=== PATIENT | female | born 1980 | race Caucasian/White ===

== ENCOUNTER 2023-01-04 19:43 | Outpatient (REF) | payer MEDICAID, SELFPAY ==
[2023-01-10 17:11] LABS: Age Gdln ACOG Testing Note (.); HPV Aptima Negative (Negative); IGP, Aptima HPV, rfx 16/18,45 Note (.)
== END 2023-01-04 19:44 | disposition home or self-care (01) ==
LOC: LAB 19:43
PROVIDERS: Visit Provider Obstetrics & Gynecology
DX: Z12.4 Encounter for screening for malignant neoplasm of cervix (principal)
CPT/HCPCS: 87624; G0145

== ENCOUNTER 2023-01-19 11:05 | Outpatient (OUT) | payer MEDICAID, SELFPAY ==
--- NOTE | 2023-01-19 11:56 | PM.PRESUREVA ---
History of Present Illness History of Present Illness Chief complaint: cervical polyps, pelvic pain, dysperunia Narrative: Patient presents for preadmission testing. Please see HPI from Dr. Feliciano dated 01/04/2023. Review of Systems ROS Narrative Please see ROS from Dr. Feliciano dated 01/04/2023. [facility] Medical History (Updated 01/19/23 @ 11:30 by Kirsten Rodriguez NP) Anxiety ?F41.9 - Anxiety disorder, unspecified (ICD-10) Cervical polyp ?N84.1 - Polyp of cervix uteri (ICD-10) COVID-19 ?U07.1 - COVID-19 (ICD-10) Dyspareunia GERD (gastroesophageal reflux disease) ?K21.9 - Gastro-esophageal reflux disease without esophagitis (ICD-10) Migraine ?G43.909 - Migraine, unspecified, not intractable, without status migrainosus (ICD-10) Pelvic pain ?R10.2 - Pelvic and perineal pain (ICD-10) Family History (Updated 01/19/23 @ 11:30 by Kirsten Rodriguez NP) Other Congestive heart failure Family history of breast cancer Family history of colon cancer Family history of diabetes mellitus Family history of gastric cancer Family history of hypertension Social History (Updated 01/19/23 @ 11:26 by Kirsten Rodriguez NP) Within the past year, how often did you have a drink containing alcohol: monthly or less Smoking status: Current some day smoker What tobacco products do you use: cigarettes Pack-years instructions: Please document either packs per day or cigarettes per day in order for pack years to calculate correctly. If using both packs per day and cigarettes per day, please make sure that they denote the same thing. If they differ, pack-years will calculate based on packs per day. 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 Highest level of school completed/degree received: high school graduate Meds Home Medications and Allergies Home Medications Medication Instructions Recorded Confirmed Type venlafaxine 37.5 mg 37.5 mg PO QDAY 01/19/23 01/19/23 History capsule,extended release 24 hr Allergies Allergy/AdvReac Type Severity Reaction Status Date / Time latex Allergy swelling Verified 01/19/23 11:24 Exam Narrative Exam Narrative: Constitutional: Awake, alert, comfortable, well-appearing, nontoxic, interactive, vital signs as charted Head: Normocephalic, atraumatic Neck: Supple, normal appearance, normal range of motion, no meningeal signs, no lymphadenopathy Respiratory: No respiratory distress, breath sounds clear Cardiovascular: Regular rate and rhythm, strong and regular heart tones Abdomen: Nontender, normal bowel sounds, soft, no CVA tenderness Musculoskeletal: Normal gait, no swelling or edema Skin: No rashes or induration, no lesions, only visible skin inspected Neuro: No neurological deficits, normal sensation Psychiatric: Oriented ?3, normal affect Assessment and Plan Assessment and Plan (1) Cervical polyp: (2) Pelvic pain: (3) Dyspareunia: Plan Diagnostic laparoscopy, possible CECILIA, possible FOE, possible bilateral salpingo-oophorectomy, cervical/vaginal polypectomy scheduled with Dr. Feliciano 01/26/2023.
== END 2023-01-19 11:06 | disposition home or self-care (01) ==
PROVIDERS: Visit Provider Obstetrics & Gynecology
DX: Z01.818 Encounter for other preprocedural examination (principal); R10.2 Pelvic and perineal pain; N94.10 Unspecified dyspareunia; N84.1 Polyp of cervix uteri
CPT/HCPCS: G0463

== ENCOUNTER 2023-01-26 06:33 | Day surgery (SDC) | payer MEDICAID, SELFPAY ==
[2023-01-19 11:47] VITALS: BP 142/85; PULSE 79; RESP 18; TEMP 36.5; O2SAT 98; BMI 34.9
[2023-01-26] VITALS (12 sets, daily range): BP systolic 119–141; BP diastolic 44–87; PULSE 64–86; RESP 13–22; TEMP 35.8–36.5; O2SAT 93–98
[2023-01-26 06:46] LABS: Basophils Percent Auto 0.1 % (0.2-2.0); Eosinophils Absolute Auto 0.2 10^3/uL (0.0-0.7); Eosinophils Percent Auto 2.1 % (0.9-7.0); Hematocrit 41.9 % (36.0-48.0); Hemoglobin 13.7 g/dL (12.0-16.0); Immature Granulocytes Abs Auto 0.02 10^3/uL (0.00-0.03); Immature Granulocytes Pct Auto 0.2 % (0.0-0.5); Lymphocytes Absolute Auto 3.3 10^3/uL (1.2-3.8); Lymphocytes Percent Auto 38.8 % (20.5-60.0); Mean Corpuscular HGB Conc 32.7 g/dL (29.9-35.2); Mean Corpuscular Volume 91.7 fL (81.0-99.0); Mean Platelet Volume 11.4 fL (9.5-13.5); Monocytes Absolute Auto 0.5 10^3/uL (0.3-0.8); Monocytes Percent Auto 5.5 % (1.7-12.0); Neutrophils Absolute Auto 4.5 10^3/uL (1.4-6.5); Neutrophils Percent Auto 53.3 % (43.0-75.0); Platelet Count 233 10^3/uL (150-450); Red Blood Count 4.57 10^6/uL (4.20-5.40); Red Cell Distribution Width 12.7 % (11.0-15.0); White Blood Count 8.4 10^3/uL (4.0-11.0)
[2023-01-26 07:06] LABS: HCG Quantitative <1 mIU/mL
[2023-01-26] MEDS: LACTATED RINGER'S SOLUTION 1,000 ML 50 ML IV (07:08)
--- NOTE | 2023-01-26 08:41 | P.ON_ITS ---
Brief Operative Note Date of procedure: 01/26/23 Pre-op diagnosis: pelvic pain, vaginal polyp Post-op diagnosis: other (lt dermoid cyst, rt simple cyst, pelvic vascualar congestion, endometriosis anterior abdominal wall) Procedure: NAME OF PROCEDURE: [diagnostic laparoscopy with lt oopherectomy, removal of vaginal polyp ] lt dermoid cyst, vaginal polyp, anterior abdominal wall endometriosis, pelvic vascular congestion PROCEDURE: weighted speculum placed in vagina, vaginal polyp identified, suture placed around stalk polyp removed using scissors, excellent hemostasis The patient was taken back to the Operating Room where she was placed in dorsal lithotomy position after given general anesthesia. The patient was prepped and draped in normal sterile fashion. A sponge stick was placed into the patient's vagina. Attention was turned to the patient's abdomen, where a small umbilical incision was made. The fascia was tented using Matt clamps and the fascia was entered sharply. Confirmation of intraabdominal placement of the 10 mm port was confirmed under direct visualization using a laparoscope. The patient's abdomen was then insufflated using CO2 gas with approximately 4 liters. A second and third port was placed laterally, this was done under direct visualization with a 5 mm port. Survey of the patient's abdomen demonstrated normal liver and gallbladder. Survey of the patient's pelvic anatomy demonstrated simple suman earing rt ovary and lt dermoid cyst and normal tubes as well as normal appearing uterus. pelvic vascular congestion was also noted. ant abdominal wall endometrial implants could be noted, no evidence of any pelvic disease was seen, normal appearing pelvic cavity. ligasure was used to remove the left ovary. All instruments were removed from the patient's abdomen. The patient's abdomen was deinsufflated of CO2 gas. The patient tolerated the procedure well. Sponge stick was removed from the patient's vagina. The patient's infraumbilical fascia was closed using #0 Vicryl on a GI needle. The patient's skin was closed laterally and infraumbilically using 4-0 Vicryl. The patient tolerated the procedure well. Sponge, lap and needle counts were correct x 2. The patient was taken to Recovery Room in stable condition.Clips from prior surgery noted adhered to bladder, the clips were grasped and gently removed Anesthesia: MARIE Surgeon: Neto Feliciano Channel Installer: Arabella Rosen Estimated blood loss (mL): 5 Pathology: other (lt ovary) Condition: stable Disposition: PACU
[2023-01-26] MEDS: 0.9 % SODIUM CHLORIDE 1,000 ML 100 ML IV (08:52)
--- NOTE | 2023-01-26 09:33 | PC.NURSE ---
Patient states she has a little pain and states pain is tolerable. States if she needs medication for pain she will surly ask Denies need for pain at this time.
[2023-01-26] MEDS: HYDROCODONE/ACET 5-325 MG TABLET 1 TAB PO (09:38)
--- NOTE | 2023-01-26 10:09 | PC.NURSE ---
Denies urge to void; peripad dry
--- NOTE | 2023-01-26 10:50 | PC.NURSE ---
Voided clear yellow urine without difficulty; peripad dry
== END 2023-01-26 10:52 | disposition home or self-care (01) ==
LOC: SURGOUT 06:34
PROVIDERS: Visit Provider Obstetrics & Gynecology
PROC: (CPT 840; principal; 2023-01-26 07:30)
DX: R10.2 Pelvic and perineal pain (principal); N94.10 Unspecified dyspareunia; D27.1 Benign neoplasm of left ovary; N84.2 Polyp of vagina; N80.399 Endometriosis of the pelvic peritoneum, other specified sites, unspecified depth; N94.89 Other specified conditions associated with female genital organs and menstrual cycle; F41.9 Anxiety disorder, unspecified; Z86.16 Personal history of COVID-19; K21.9 Gastro-esophageal reflux disease without esophagitis; F17.210 Nicotine dependence, cigarettes, uncomplicated
CPT/HCPCS: 00840; 00940; 57135; 58661; 36415; 84702; 85025; 88112; 88305; 88307; J2704

== ENCOUNTER 2024-04-26 00:41 | Emergency (ER) | payer MEDICAID, SELFPAY ==
[2024-04-26 00:49] VITALS: BP 154/96; PULSE 110; TEMP 36.5; O2SAT 98; BMI 27.4
--- NOTE | 2024-04-26 00:49 | ED_ITS ---
HPI HPI - General Adult General Chief complaint: Nausea/Vomiting/Diarrhea Stated complaint: vomiting Time Seen by Provider: 04/26/24 00:44 History of Present Illness HPI narrative: Patient is a 43-year-old female who is presenting to the ER with chief complaint of nausea, vomiting, diarrhea. Patient had a few episodes of diarrhea tonight, 1 episode of black diarrhea. Patient did take Pepto-Bismol yesterday, not today. Patient states she has been having diffuse abdominal discomfort going on for a week. Patient states she was hoping it would go away. 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 Patient left work early secondary to nausea vomiting. Patient has not had any coffee-ground emesis, has been clear/yellow. Patient has not been able to keep liquids and today. Patient is concerned about her gallbladder. She has no history of acid reflux. Patient states that she rarely drinks alcohol. Patient is a smoker, half a pack to a pack of cigarettes a day. No anti-inflammatories significant use. Patient had a greasy breakfast yesterday, but no excessive greasy or fatty food intake. No significant recent stressor anxiety. Patient has no history of acid reflux or heartburn. No gallbladder history. She still has her appendix. No previous abdominal surgeries. No other acute complaints. Patient does not believe she is , her had a vasectomy. Patient's been having intermittent nausea, intermittent warm flashes. All systems are negative except as noted/marked. All systems reviewed and otherwise negative. Nurses note and vital signs reviewed and patient is not hypoxic. General: The patient appears mild distress, somewhat slightly writhing in the bed, squirming and intermittently moving, not able to find any comfortable position.. Patient is resting uncomfortably on cart. Patient is not toxic, lethargic, or listless Skin: Warm, dry, no pallor noted. There is no rash noted. No petechiae, purpura. Head: Normocephalic, atraumatic Eye: Normal conjunctiva, no drainage, EOMI. PERRL Ears, Nose, Mouth, and Throat: oral mucosa is moist. Nares patent. Mouth without vesicles. Cardiovascular: Regular Rate and Rhythm, no murmur, gallop, rub Respiratory: Patient is in no distress, no accessory muscle use, lungs are clear to auscultation, no wheezing, rales or rhonchi Back: non-tender, no CVA tenderness bilaterally to percussion. No CT LS midline pain GI: Diffuse mild to moderate tenderness to palpation, no suprapubic tenderness palpation, no flank pain bilateral. Patient has moderate tenderness midepigastric and left upper quadrant tenderness to palpation, no peritoneal signs, no rash, otherwise no tenderness to palpation, no masses appreciated. No rebound, guarding, or rigidity noted. Mild distention Musculoskeletal: Patient has full range of motion of all of the extremities, no motor, sensory, or focal neurological deficits. Neurological: A&O x4, normal speech Psychiatric: Cooperative Related Data Home Medications ?Medication ?Instructions ?Recorded ?Confirmed venlafaxine 37.5 mg 37.5 mg PO QDAY 01/19/23 04/26/24 capsule,extended release 24 hr Previous Rx's ?Medication ?Instructions ?Recorded dicyclomine 20 mg tablet 20 mg PO TID PRN abdominal pain #7 04/26/24 tabs ondansetron 4 mg disintegrating 4 mg PO Q4H PRN nausea and 04/26/24 tablet vomiting 3 days #6 tabs promethazine 25 mg rectal 25 mg [place] Q6H PRN nausea and 04/26/24 suppository vomiting #6 ea Allergies Allergy/AdvReac Type Severity Reaction Status Date / Time latex Allergy swelling Verified 04/26/24 00:49 Opioid HPI Opioid Management Most Recent Opioid Data: Last Pain Scale 7 04/26/24 01:02 04/26/24 [facility] Medical History (Updated 04/26/24 @ 01:43 by Gustavo Velazquez MD) Anxiety ?F41.9 - Anxiety disorder, unspecified (ICD-10) COVID-19 ?U07.1 - COVID-19 (ICD-10) Migraine ?G43.909 - Migraine, unspecified, not intractable, without status migrainosus (ICD-10) Cervical polyp ?N84.1 - Polyp of cervix uteri (ICD-10) Dyspareunia Pelvic pain ?R10.2 - Pelvic and perineal pain (ICD-10) GERD (gastroesophageal reflux disease) ?K21.9 - Gastro-esophageal reflux disease without esophagitis (ICD-10) Family History (Updated 01/19/23 @ 11:30 by Kirsten Rodriguez NP) Other Congestive heart failure Family history of breast cancer Family history of colon cancer Family history of diabetes mellitus Family history of gastric cancer Family history of hypertension Social History (Updated 01/26/23 @ 06:48 by Audelia Jefferson) Within the past year, how often did you have a drink containing alcohol: monthly or less Smoking status: Current some day smoker What tobacco products do you use: cigarettes Cigarettes per day: 10 Years smoked: 20 Smoking pack-years: 10.00 Non-prescribed substance use: cannabis (any form) Non-prescribed substance use details: last 2 weeks ago 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 Highest level of school completed/degree received: high school graduate Little interest or pleasure in doing things: not at all Feeling down, depressed, or hopeless: not at all Exam Constitutional Vital Signs, click to edit/add: Last Vital Signs Temp 97.7 F 04/26/24 00:49 Pulse 110 H 04/26/24 00:49 Resp 18 04/26/24 00:49 BP 154/96 H 04/26/24 00:49 Pulse Ox 98 04/26/24 00:49 O2 Del Method Room Air 04/26/24 00:49 Course Vital Signs Vital signs: Vital Signs Temperature 97.7 F 04/26/24 00:49 Pulse Rate 110 H 04/26/24 00:49 Respiratory Rate 18 04/26/24 00:49 Blood Pressure 154/96 H 04/26/24 00:49 Pulse Oximetry 98 04/26/24 00:49 Oxygen Delivery Method Room Air 04/26/24 00:49 Temperature 97.7 F 04/26/24 00:49 Pulse Rate 110 H 04/26/24 00:49 Respiratory Rate 18 04/26/24 00:49 Blood Pressure 154/96 H 04/26/24 00:49 Pulse Oximetry 98 04/26/24 00:49 Oxygen Delivery Method Room Air 04/26/24 00:49 Medical Decision Making MDM Narrative Medical decision making narrative: Patient was given IV Zofran, Compazine. Patient is given IV Protonix. Patient is given IV fluids, x-ray. Lab work was done. Patient will obtain a urine sample as well. Patient was given a dose of morphine secondary to unable to find a comfortable position. Patient abdominal x-ray shows no air-fluid levels, no obstruction, no acute pathology. Chest x-ray shows no acute cardiopulmonary disease. 0200 computer systems are shutting down for maintenance, we will be moving to paper. Patient's prescriptions and discharge paperwork have been preprinted. 0700 patient felt significantly better at discharge. Patient's nausea has im proved. Patient does not feel as bloated. She had no midepigastric pain. Lab testing did not show any significant abnormalities. Patient was initially started on computer and finished on paper charting. I did print patient's discharged prior to computers going on downtime at 2 AM. Patient will follow-up with PCP. No questions at discharge. Lab Data Labs: Lab Results 04/26/24 Range/Units 00:55 WBC 12.5 H (4.0-11.0) 10^3/uL RBC 4.92 (4.20-5.40) 10^6/uL Hgb 14.9 (12.0-16.0) g/dL Hct 44.1 (36.0-48.0) % MCV 89.6 (81.0-99.0) fL MCH 30.3 (26.7-34.0) pg MCHC 33.8 (29.9-35.2) g/dL RDW 12.8 (11.0-15.0) % Plt Count 208 (150-450) 10^3/uL MPV 11.9 (9.5-13.5) fL Seg Neuts % (Manual) 91.0 H (43.0-75.0) Lymphocytes % (Manual) 6.0 L (20.5-60.0) % Monocytes % (Manual) 2.0 (1.7-12.0) % Eosinophils % (Manual) 1.0 (0.9-7.0) % Basophils % (Manual) 0.0 L (0.2-2.0) % Neutrophils # (Manual) 11.37 H (1.4-6.5) 10^3/uL Lymphocytes # (Manual) 0.75 L (1.20-3.80) 10^3/uL Monocytes # (Manual) 0.25 L (0.30-0.80) 10^3/uL Eosinophils # (Manual) 0.12 (0.00-0.70) 10^3/uL Basophils # (Manual) 0.00 (0.00-0.10) 10^3/uL Sodium 140 (136-145) mmol/L Potassium 4.3 (3.5-5.1) mmol/L Chloride 103 (98-107) mmol/L Carbon Dioxide 26.6 (21.0-32.0) mmol/L Anion Gap 14.7 BUN 17.0 (7.0-18.0) mg/dL Creatinine 0.82 (0.55-1.02) mg/dL Est GFR ( Amer) >60 (>=60 mL/min/1.73m^2) Est GFR (Non-Af Amer) >60 (>=60 mL/min/1.73m^2) BUN/Creatinine Ratio 20.7 Glucose 120 H (74-106) mg/dL Calcium 9.7 (8.5-10.1) mg/dL Total Bilirubin 0.8 (0.2-1.0) mg/dL AST 16 (15-37) U/L ALT 23 (14-59) U/L Alkaline Phosphatase 84 (46-116) U/L Total Protein 7.6 (6.4-8.2) g/dL Albumin 4.0 (3.4-5.0) g/dL Globulin 3.6 g/dL Albumin/Globulin Ratio 1.1 Lipase 84.0 H (16.0-77.0) U/L ECG Data Attestation: I personally reviewed and interpreted this ECG as follows: (EKG interpretation. Normal sinus rhythm at 86 beats a minute. Normal axis deviation. No acute ST elevation, no acute ectopy. QTc of 391.) Discharge Plan Discharge Chief Complaint: Nausea/Vomiting/Diarrhea Clinical Impression: Abdominal pain, Gastritis, Nausea & vomiting Patient Disposition: Home, Self-Care Time of Disposition Decision: 01:43 Condition: Fair Mode of Transportation: Private Vehicle Prescriptions / Home Meds: New promethazine 25 mg suppository 25 mg WY Q6H PRN (Reason: nausea and vomiting) Qty: 6 0RF dicyclomine 20 mg tablet 20 mg PO TID PRN (Reason: abdominal pain) Qty: 7 0RF ondansetron 4 mg tablet,disintegrating 4 mg PO Q4H PRN (Reason: nausea and vomiting) 3 Days Qty: 6 0RF No Action venlafaxine 37.5 mg capsule,extended release 24hr 37.5 mg PO QDAY Print Language: Bahraini Instructions: Gastritis (ED), Acute Nausea and Vomiting (ED), Abdominal Pain (ED) Additional Instructions: Increase fluids at home. Use Zofran as needed for nausea, use Phenergan suppositories as a backup for nausea and vomiting. Use Bentyl for abdominal cramping. If you are having intractable abdominal pain, nausea, vomiting, or any other acute complaints, return back to the ER for reevaluation. Referrals: Physician,Non-Staff, MD [Primary Care Provider] - 1 week Discharge Date/Time: 04/26/24 04:00
--- NOTE | 2024-04-26 00:56 | ECG_ITS ---
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
[2024-04-26 01:25] LABS: Hematocrit 44.1 % (36.0-48.0); Hemoglobin 14.9 g/dL (12.0-16.0); Mean Corpuscular HGB Conc 33.8 g/dL (29.9-35.2); Mean Corpuscular Hemoglobin 30.3 pg (26.7-34.0); Mean Corpuscular Volume 89.6 fL (81.0-99.0); Mean Platelet Volume 11.9 fL (9.5-13.5); Platelet Count 208 10^3/uL (150-450); Red Blood Count 4.92 10^6/uL (4.20-5.40); Red Cell Distribution Width 12.8 % (11.0-15.0); White Blood Count 12.5 10^3/uL (4.0-11.0)
[2024-04-26] MEDS: ONDANSETRON PF 4 MG/2 ML VIAL IV (01:32)
[2024-04-26] MEDS: PANTOPRAZOLE SODIUM 40 MG VIAL IV (01:32)
[2024-04-26] MEDS: 0.9 % SODIUM CHLORIDE 1,000 ML 1000 ML IV (01:32)
[2024-04-26] MEDS: PROCHLORPERAZINE 10 MG/2 ML VIAL 5 MG IV (01:32)
--- NOTE | 2024-04-26 01:35 | XR_ITS ---
The [address] [address] Patient Name: THAI CLARK MRN: [facility]:[id number] date: 1980 Sex: F Assigned Patient Location: ED.MAIN Current Patient Location: ED.MAIN Accession/Order Number: [id number] Exam Date: 04/26/2024 01:38 Report Date: 04/26/2024 03:37 At the request of: CELY HERNANDEZ Procedure: XR acute abdomen series EXAM: OBSTRUCTION SERIES HISTORY:diffuse abd pain COMPARISON:None TECHNIQUE:Frontal images of the chest and abdomen are submitted. FINDINGS: There is a nonobstructive bowel gas pattern with air and feces identified to the level of the rectum.There is a moderate stool burden. No suspicious urologic opacifications are appreciated. There is no free air under the diaphragm. The cardiomediastinal silhouette is not enlarged. The pulmonary vascularity is within normal limits. The lungs are clear based on chest radiography. There is no costophrenic angle blunting. XR/XR acute abdomen series IMPRESSION: Unremarkable plain film examination of the chest and abdomen. Electronically authenticated by: MARGE PICKARD Date: 04/26/2024 03:37
[2024-04-26 01:43] LABS: Eosinophils Absolute Manual 0.12 10^3/uL (0.00-0.70); Lymphocytes Absolute Manual 0.75 10^3/uL (1.20-3.80); Monocytes Absolute Manual 0.25 10^3/uL (0.30-0.80); Segmented Neut Absolute Manual 11.37 10^3/uL (1.4-6.5)
[2024-04-26 01:44] LABS: Alanine Aminotransferase 23 U/L (14-59); Albumin Globulin Ratio 1.1; Alkaline Phosphatase 84 U/L (46-116); Anion Gap 14.7; Aspartate Amino Transferase 16 U/L (15-37); BUN Creatinine Ratio 20.7; Bilirubin Total 0.8 mg/dL (0.2-1.0); Calcium 9.7 mg/dL (8.5-10.1); Carbon Dioxide 26.6 mmol/L (21.0-32.0); Chloride 103 mmol/L (98-107); Estimated GFR (African America >60 (>=60 mL/min/1.73m^2); Estimated GFR (Non-African Ame >60 (>=60 mL/min/1.73m^2); Globulin 3.6 g/dL; Glucose 120 mg/dL (74-106); Potassium 4.3 mmol/L (3.5-5.1); Sodium 140 mmol/L (136-145); Total Protein 7.6 g/dL (6.4-8.2)
[2024-04-26] MEDS: MORPHINE SULFATE 4 MG/ML VIAL IV (01:57)
== END 2024-04-26 04:00 | disposition home or self-care (01) ==
PROVIDERS: Emergency Provider Emergency Medicine
DX: K29.70 Gastritis, unspecified, without bleeding (principal); R10.9 Unspecified abdominal pain; F17.210 Nicotine dependence, cigarettes, uncomplicated
CPT/HCPCS: 36415; 74022; 80053; 81001; 83690; 84703; 85007; 85027; 93005; 96361; 96374; 96375; 99285; J0780; J2270; J2405

== ENCOUNTER 2024-06-05 10:09 | Outpatient (OUT) | payer MEDICAID, SELFPAY ==
--- OUTSIDE RECORDS SUMMARY | 2024-06-05 10:12 | XMS_ITS | CCD ---
Author Organization [facility]ini[facility] Care Team Providers Care Software Validation Engineer Name Role Phone AIDAN ., DR CR Admitting Unavailable AIDAN ., DR CR Attending Unavailable MISC, DR SANDERS Primary Care Unavailable MISC, DR SANDERS Primary Care Unavailable HAY ., DR CHARLES Admitting Unavailable HAY ., DR CHARLES Attending Unavailable LEEECK, DR NANCY Bryan Consulting Unavailleonard SOUSA, IVAN Consulting Unavailable REQUEST, DR HI LISTED Primary Care Unavaila ble HAY ., DR CHARLES Admitting Unavailable HAY ., DR CHARLES Attending Unavailable HAY ., DR CHARLES Consulting Unavailable HAY ., DR CHARLES Admitting Unavailable HAY ., DR CHARLES Attending Unavailable MISC, DR SANDERS Primary Care Unavailable HAY ., DR CHARLES Consulting Unavailable AIDAN ., DR CR Admitting Unavailable AIDAN ., DR CR Attending Unavailable MISC, DR SANDERS Primary Care Unavailable AIDAN ., DR CR Consulting Unavailable GUY ROBERTS Consulting Unavailable Medications Current Medications Medication Drug Class(es) Dates Sig (Normalized) Sig (Original) 24 hr venlafaxine 37.5 mg extended release oral capsule (1 source) Serotonin and Norepinephrine Reuptake Inhibitor Start: 05-01-2024 take 1 capsule by mouth once daily Venlafaxine (Effexor Xr) 37.5 mg capsule,extended release 24hr Active 37.5 MG PO Daily May 01, 2024 12:00am Problems Active Problems Problem Classification Problem Date Documented Da te Episodic/Chronic Abdominal pain (6 sources) Right upper quadrant pain; Translations: [Abdominal pain] Onset: 08-19-2022 Episodic Anxiety disorders (1 source) Anxiety; Translations: [Anxiety disorder, unspecified] 05-01-2024 Chronic Nausea and vomiting (6 sources) Nausea with vomiting, unspecified; Translations: [Nausea and vomiting] Onset: 03-05-2022 Episodic Other endocrine disorders (5 sources) Endocrine disorder, unspecified; Translations: [ENDOCRINE DISORDER UNSPECIFIED] Onset: 08-19-2022 Episodic Other gastrointestinal disorders (1 source) Diarrhea; Translations: [Diarrhea, unspecified] 05-01-2024 Episodic Other gastrointestinal disorders (1 source) Diarrhea, unspecified; Translations: [Diarrhea] 05-01-2024 Episodic Ovarian cyst (1 source) Other ovarian cyst, right side; Translations: [OTHER OVARIAN CYST RIGHT SIDE] Onset: 08-22-2022 Episodic Unclassified (1 source) CONTACT W/AND (SUSP) EXPOS COVID-19; Translations: [CONTACT W/AND (SUSP) EXPOS COVID-19] Onset: 04-20-2022 Past or Other Problems Problem Classification Problem Date Documented Da te Episodic/Chronic Other connective tissue disease (1 source) Myalgia, unspecified site; Translations: [MYALGIA UNSPECIFIED SITE] Onset: 03-08-2022 Episodic Other upper respiratory infections (5 sources) Acute pharyngitis, unspecified; Translations: [Streptococcal pharyngitis] Onset: 03-08-2022 Episodic Urinary tract infections (1 source) Urinary tract infection, site not specified; Translations: [UTI SITE NOT SPECIFIED] Onset: 03-08-2022 Episodic Results Test Name Value Interpretation Reference Range Facility DHEA SERUMon 08-25-2022 Dehydroepiandrosterone (DHEA) 111 ng/dL Normal 31-701 [facility] Comment on above: Performed By: #### D #### [facility] [address] [place] [address] Dr. Paresh Ewing PROGESTERONEon 08-22-2022 Progesterone 1.9 ng/mL Normal [facility] Comment on above: Result Comment: Foll icular phase 0.1 - 0.9 Luteal phase 1.8 - 23.9 Ovulation phase 0.1 - 12.0 First trimester 11.0 - 44.3 Second trimester 25.4 - 83.3 Third trimester 58.7 - 214.0 Postmenopausal 0.0 - 0.1 Performed By: #### C ANKUR #### [facility] [address] [address] [address] Paresh Ewing DHEA-SULFATEon 08-20-2022 DHEA-Sulfate 124.0 ug/dL Normal 57.3-279.2 [facility] Comment on above: Performed By: #### D HEASUL #### [facility] [address] [place] [address] Dr. Paresh Ewing ESTRADIOLon 08-20-2022 Estradiol 104.0 pg/mL Normal [facility] Comment on above: Result Comment: Adul t Female: Follicular phase 12.5 - 166.0 Ovulation phase 85.8 - 498.0 Luteal phase 43.8 - 211.0 Postmenopausal <6.0 - 54.7 1st trimester 215.0 - >4300.0 Lc ECLIA methodology Performed By: #### E MAULIK #### [facility] [address] [place] [address] Dr. Paresh Ewing FSHon 08-20-2022 FSH 10.5 mIU/mL Normal [facility] Comment on above: Result Comment: Adul t Female: Follicular phase 3.5 - 12.5 Ovulation phase 4.7 - 21.5 Luteal phase 1.7 - 7.7 Postmenopausal 25.8 - 134.8 Performed By: #### Dakota GILL. #### [facility] [address] [place] [address] Dr. Paresh Ewing LUTEINIZING HORMONE (LH)on 0 08-20-2022 LH 13.8 mIU/mL Normal [facility] Comment on above: Result Comment: Adul t Female: Follicular phase 2.4 - 12.6 Ovulation phase 14.0 - 95.6 Luteal phase 1.0 - 11.4 Postmenopausal 7.7 - 58.5 Performed By: #### L BCLH #### [facility] [address] [place] [address] Dr. Paresh Ewing CBC AUTO DIFFon 08-19-2022 BASO # 0.0 103/ul Normal 0.0-0.1 [facility] Comment on above: Performed By: #### Dakota GILL. #### [facility] [address] [place] [address] Dr. Paresh Ewing Basophils/100 WBC (Bld) 0.2 % Normal 0.2-2.0 [facility] Comment on above: Performed By: #### Dakota GILL. #### [facility] [address] [place] [address] Dr. Paresh Ewing EO # 0.1 103/ul Normal 0.0-0.7 [facility] Comment on above: Performed By: #### Dakota GILL. #### [facility] [address] [place] [address] Dr. Paresh Ewing Eosinophils/100 WBC (Bld) 1.6 % Normal 0.9-7.0 [facility] Comment on above: Performed By: #### Dakota GILL. #### [facility] [address] [place] [address] Dr. Paresh Ewing Erythrocyte distribution width (RBC) [Ratio] 12.6 % Normal 11.0-15.0 [facility] Comment on above: Performed By: #### Dakota GILL. #### [facility] [address] [place] [address] Dr. Paresh Ewing Hematocrit (Bld) [Volume fraction] 40.3 % Normal 36.0-48.0 [facility] Comment on above: Performed By: #### Dakota GILL. #### [facility] [address] [place] [address] Dr. Paresh Ewing Hemoglobin (Bld) [Mass/Vol] 13.4 g/dL Normal 12.0-16.0 [facility] Comment on above: Performed By: #### Dakota GILL. #### [facility] [address] [place] [address] Dr. Paresh Ewing IG # 0.01 10e3/ul Normal 0.00-0.03 [facility] Comment on above: Performed By: #### Dakota GILL. #### [facility] [address] [place] [address] Dr. Paresh Ewing IG % 0.1 % Normal 0.0-0.5 [facility] Comment on above: Performed By: #### Dakota GILL. #### [facility] [address] [place] [address] Dr. Paresh Ewing LYMPH # 2.5 103/ul Normal 1.2-3.8 [facility] Comment on above: Performed By: #### Dakota GILL. #### [facility] [address] [place] [address] Dr. Paresh Ewing Lymphocytes/100 WBC (Bld) 28.7 % Normal 20.5-60.0 [facility] Comment on above: Performed By: #### Dakota GILL. #### [facility] [address] [place] [address] Dr. Paresh Ewing MANUAL DIFF REQ NO Normal [facility] Comment on above: Performed By: #### Dakota GILL. #### [facility] [address] [place] [address] Dr. Paresh Ewing MCH (RBC) [Entitic mass] 30.2 pg Normal 26.7-34.0 [facility] Comment on above: Performed By: #### Dakota GILL. #### [facility] [address] [place] [address] Dr. Paresh Ewing MCHC (RBC) [Mass/Vol] 33.3 g/dL Normal 29.9-35.2 [facility] Comment on above: Performed By: #### Dakota GILL. #### [facility] [address] [place] [address] Dr. Paresh Ewing MCV (RBC) [Entitic vol] 90.8 fL Normal 81.0-99.0 [facility] Comment on above: Performed By: #### Dakota GILL. #### [facility] [address] [place] [address] Dr. Paresh Ewing MONO # 0.5 103/ul Normal 0.3-0.8 [facility] Comment on above: Performed By: #### Dakota GILL. #### [facility] [address] [place] [address] Dr. Paresh Ewing Monocytes/100 WBC (Bld) 6.3 % Normal 1.7-12.0 [facility] Comment on above: Performed By: #### Dakota GILL. #### [facility] [address] [place] [address] Dr. Paresh Ewing NEUT # 5.4 103/ul Normal 1.4-6.5 [facility] Comment on above: Performed By: #### Dakota GILL. #### [facility] [address] [address] [address] Paresh Ewing Neutrophils/100 WBC (Bld) 63.1 % Normal 43.0-75.0 [facility] Comment on above: Performed By: #### Dakota GILL. #### [facility] [address] [place] [address] Dr. Paresh Ewing Platelet mean volume (Bld) [Entitic vol] 11.4 fL Normal 9.5-13.5 [facility] Comment on above: Performed By: #### Dakota GILL. #### [facility] [address] [place] [address] Dr. Paresh Ewing PLT 220 103/ul Normal 150-450 [facility] Comment on above: Performed By: #### Dakota GILL. #### [facility] [address] [place] [address] Dr. Paresh Ewing RBC 4.44 106/ul Normal 4.20-5.40 [facility] Comment on above: Performed By: #### Dakota GILL. #### [facility] [address] [place] [address] Dr. Paresh Ewing WBC 8.5 103/ul Normal 4.0-11.0 [facility] Comment on above: Performed By: #### Dakota GILL. #### [facility] [address] [place] [address] Dr. Paresh Ewing Basophils/100 WBC (Bld) 0.3 % Normal 0.2-2.0 [facility] Comment on above: Performed By: #### Dakota GILL. #### [facility] [address] [place] [address] Dr. Paresh Ewing Eosinophils/100 WBC (Bld) 1.7 % Normal 0.9-7.0 [facility] Comment on above: Performed By: #### Dakota GILL. #### [facility] [address] [place] [address] Dr. Paresh Ewing Erythrocyte distribution width (RBC) [Ratio] 12.7 % Normal 11.0-15.0 [facility] Comment on above: Performed By: #### Dakota GILL. #### [facility] [address] [address] [address] Paresh Ewing Hematocrit (Bld) [Volume fraction] 39.2 % Normal 36.0-48.0 [facility] Comment on above: Performed By: #### Dakota GILL. #### [facility] [address] [place] [address] Dr. Paresh Ewing Hemoglobin (Bld) [Mass/Vol] 13.0 g/dL Normal 12.0-16.0 [facility] Comment on above: Performed By: #### Dakota GILL. #### [facility] [address] [place] [address] Dr. Paresh Ewing IG # 0.02 10e3/ul Normal 0.00-0.03 [facility] Comment on above: Performed By: #### Dakota GILL. #### [facility] [address] [place] [address] Dr. Paresh Ewing IG % 0.3 % Normal 0.0-0.5 [facility] Comment on above: Performed By: #### Dakota GILL. #### [facility] [address] [place] [address] Dr. Paresh Ewing LYMPH # 2.6 103/ul Normal 1.2-3.8 [facility] Comment on above: Performed By: #### Dakota GILL. #### [facility] [address] [place] [address] Dr. Paresh Ewing Lymphocytes/100 WBC (Bld) 36.8 % Normal 20.5-60.0 [facility] Comment on above: Performed By: #### Dakota GILL. #### [facility] [address] [place] [address] Dr. Paresh Ewing MCH (RBC) [Entitic mass] 30.4 pg Normal 26.7-34.0 [facility] Comment on above: Performed By: #### Dakota GILL. #### [facility] [address] [place] [address] Dr. Paresh Ewing MCHC (RBC) [Mass/Vol] 33.2 g/dL Normal 29.9-35.2 [facility] Comment on above: Performed By: #### Dakota GILL. #### [facility] [address] [address] [address] Paresh Ewing MCV (RBC) [Entitic vol] 91.8 fL Normal 81.0-99.0 [facility] Comment on above: Performed By: #### Dakota IGLL. #### [facility] [address] [address] [address] Paresh Ewing MONO # 0.4 103/ul Normal 0.3-0.8 [facility] Comment on above: Performed By: #### Dakota GILL. #### [facility] [address] [place] [address] Dr. Paresh Ewing Monocytes/100 WBC (Bld) 6.1 % Normal 1.7-12.0 [facility] Comment on above: Performed By: #### Dakota GILL. #### [facility] [address] [place] [address] Dr. Paresh Ewing NEUT # 3.9 103/ul Normal 1.4-6.5 [facility] Comment on above: Performed By: #### Dakota GILL. #### [facility] [address] [place] [address] Dr. Paresh Ewing Neutrophils/100 WBC (Bld) 54.8 % Normal 43.0-75.0 [facility] Comment on above: Performed By: #### Dakota GILL. #### [facility] [address] [place] [address] Dr. Paresh Ewing Platelet mean volume (Bld) [Entitic vol] 11.3 fL Normal 9.5-13.5 [facility] Comment on above: Performed By: #### Dakota GILL. #### [facility] [address] [place] [address] Dr. Paresh Ewing PLT 239 103/ul Normal 150-450 [facility] Comment on above: Performed By: #### Dakota GILL. #### [facility] [address] [place] [address] Dr. Paresh Ewing RBC 4.27 106/ul Normal 4.20-5.40 [facility] Comment on above: Performed By: #### Dakota GILL. #### [facility] [address] [address] [address] Paresh Ewing WBC 7.2 103/ul Normal 4.0-11.0 [facility] Comment on above: Performed By: #### Dakota GILL. #### [facility] [address] [address] [address] ABD/PELVIS WO CONon 08-19 CT ABD/PELVIS WO CON EXAM: CT scan of the abdomen and pelvis without contrast. Dose reduction technique used: Automated exposure control and/or adjustment of the mA and/or kV according to patient size and/or use of iterative reconstruction technique. REASON FOR EXAM: Right flank pain COMPARISON: None FINDINGS: Small fat-containing umbilical hernia. Sclerotic changes along the left pubic body are likely degenerative/osteit is pubis. Mixed density although predominantly fat density left adnexal 4.8 cm mass. 1.7 cm right adrenal nodule with Hounsfield units compatible with an adenoma. Tiny nonobstructing right calyceal renal stone. No ureteral or bladder calculi. No hydronephrosis. Negative appendix. No free intraperitoneal air. No free fluid in the abdomen or pelvis. No dilated or thickened loops of small bowel or colon. Liver, pancreas, spleen, bilateral kidneys, and bilateral adrenal glands are otherwise unremarkable within the limitations of noncontrast CT. No lymphadenopathy in the abdomen or pelvis. Remainder unremarkable. IMPRESSION: 1. No acute abnormalities in the abdomen or pelvis. 2. Left adnexal mature teratoma. Electronically authenticated by: IVAN SOUSA Date: 2022-08-19 15:56 Normal [facility] ER URINE PROFILEon 3 Bilirubin Ql (U) Negative Normal NEGATIVE [facility] Comment on above: Performed By: #### Italia PASCUAL #### [facility] [address] [address] [address] Paresh Ewing Clarity (U) CLEAR Normal CLEAR [facility] Comment on above: Performed By: #### Italia PASCUAL #### [facility] [address] [address] [address] Paresh Ewing Color (U) LT. YELLOW Normal YELLOW [facility] Comment on above: Performed By: #### C ANKUR #### [facility] [address] [address] [address] Paresh BARAJAS A micrscopic examination will be performed if indicated. Normal [facility] Comment on above: Performed By: #### C ANKUR #### [facility] [address] [address] [address] Paresh Ewing Glucose Ql (U) Negative Normal NEGATIVE [facility] Comment on above: Performed By: #### C BCDESTINY #### [facility] [address] [address] [address] Paresh Ewing Hemoglobin Ql (U) Negative Normal NEGATIVE [facility] Comment on above: Performed By: #### C ANKUR #### [facility] [address] [place] [address] Dr. Paresh Ewing Ketones Ql (U) TRACE Abnormal NEGATIVE [facility] Comment on above: Performed By: #### C ANKUR #### [facility] [address] [place] [address] Dr. Paresh Ewing LEUKOCYTES Negative Normal NEGATIVE [facility] Comment on above: Performed By: #### C ANKUR #### [facility] [address] [place] [address] Dr. Paresh Ewing Nitrite Ql (U) Negative Normal NEGATIVE [facility] Comment on above: Performed By: #### C ANKUR #### [facility] [address] [place] [address] Dr. Paresh Ewing pH (U) 6.0 [pH] Normal 5-9 [facility] Comment on above: Performed By: #### C ANKUR #### [facility] [address] [place] [address] Dr. Paresh Ewing SPEC GRAVITY 1.025 Normal 1.005-<=1.025 [facility] Comment on above: Performed By: #### C ANKUR #### [facility] [address] [place] [address] Dr. Paresh Ewing UA PROTEIN Negative Normal NEGATIVE/ TRACE [facility] Comment on above: Performed By: #### C ANKUR #### [facility] [address] [place] [address] Dr. Paresh Ewing UR MICRO IND NOT INDICATED Normal [facility] Comment on above: Performed By: #### C ANKUR #### [facility] [address] [place] [address] Dr. Paresh Ewing Urobilinogen Qn (U) 0.2 {Myron'U}/dL Normal 0.2 - 1. 0 [facility] Comment on above: Performed By: #### C ANKUR #### [facility] [address] [place] [address] Dr. Paresh Ewing FREE T4on 08-19-2022 Free T4 [Mass/Vol] 0.88 ng/dL Normal 0.76-1.46 [facility] Comment on above: Performed By: #### C ANKUR #### [facility] [address] [place] [address] Dr. Paresh Ewing GLYCOHEMOGLOBIN A1Con 2022 ADA RECOMMENDATION SEE BELOW Normal [facility] Comment on above: Result Comment: ADA RECOMMENDED LIMIT 4.0 - 6.0 ADA THERAPEUTIC TARGET < 7.0 ACTION SUGGESTED > 7.0 Performed By: #### A 1C #### [facility] [address] [place] [address] Dr. Paresh Ewing Glucose [Mass/Vol] 105 mg/dL Normal [facility] Comment on above: Performed By: #### A 1C #### [facility] [address] [place] [address] Dr. Paresh Ewing HbA1c (Bld) [Mass fraction] 5.3 % Normal 4.5-6.2 [facility] Comment on above: Performed By: #### A 1C #### [facility] [address] [place] [address] Dr. Paresh Ewing URon 08-19-2022 , QUAL Negative Normal NEGATIVE [facility] Comment on above: Performed By: #### C RADHAMAN #### [facility] [address] [place] [address] Dr. Paresh Ewing PROF CHEM 8 (BAS METB)on 05- 06-2023 Anion gap [Moles/Vol] 10.9 mmol/L Normal [facility] Comment on above: Performed By: #### C ANKUR #### [facility] [address] [place] [address] Dr. Paresh Ewing Calcium [Mass/Vol] 9.7 mg/dL Normal 8.5-10.1 [facility] Comment on above: Performed By: #### C ANKUR #### [facility] [address] [place] [address] Dr. Paresh Ewing Chloride [Moles/Vol] 104 mmol/L Normal 98-107 [facility] Comment on above: Performed By: #### C ANKUR #### [facility] [address] [place] [address] Dr. Paresh Ewing CO2 [Moles/Vol] 27.7 mmol/L Normal 21.0-32.0 [facility] Comment on above: Performed By: #### C ANKUR #### [facility] [address] [place] [address] Dr. Paresh Ewing Creatinine [Mass/Vol] 1.02 mg/dL Normal 0.55-1.02 [facility] Comment on above: Performed By: #### C ANKUR #### [facility] [address] [place] [address] Dr. Paresh Ewing EGFR-AF GIBRALTARIAN >60 Normal >=60 [facility] Comment on above: Performed By: #### C ANKUR #### [facility] [address] [place] [address] Dr. Paresh Ewing EGFR-NON AF GIBRALTARIAN 59 mL/min/1.73m2 Critically low >=60 [facility] Comment on above: Performed By: #### C BCDESTINY #### [facility] [address] [place] [address] Dr. Paresh Ewing Glucose [Mass/Vol] 118 mg/dL Critically high 74-106 [facility] Comment on above: Performed By: #### C ANKUR #### [facility] [address] [place] [address] Dr. Paresh Ewing Potassium [Moles/Vol] 3.6 mmol/L Normal 3.5-5.1 [facility] Comment on above: Performed By: #### C BCMAN #### [facility] [address] [address] [address] Paresh Ewing Sodium [Moles/Vol] 139 mmol/L Normal 136-145 [facility] Comment on above: Performed By: #### C BCMAN #### [facility] [address] [address] [address] Paresh Ewing Urea nitrogen [Mass/Vol] 11.0 mg/dL Normal 7.0-18.0 [facility] Comment on above: Performed By: #### C ANKUR #### [facility] [address] [address] [address] Paresh Ewing Urea nitrogen/Creatinine [Mass ratio] 10.8 mg/mg Normal [facility] Comment on above: Performed By: #### C ANKUR #### [facility] [address] [address] [address] Paresh Ewing TSHon 08-19-2022 TSH 1.676 uIU/mL Normal 0.358-3.740 [facility] Comment on above: Performed By: #### T #### [facility] [address] [place] [address] Dr. Paresh Ewing US PELVIS AND TRANSVAGon US PELVIS AND TRANSVAG EXAM: Pelvic ultrasound HISTORY:. Disorder of endocrine system . COMPARISON: None TECHNIQUE: Transabdominal and transvaginal scanning was performed. Scanning of the pelvis demonstrates uterus to be anteverted and measures 10.3 x 4.3 cm. Endometrial complex measures 8 mm. Small nabothian cyst are noted within the cervix. Right ovary measures 3.9 x 3 x 2.2 cm. Color-flow is noted. Resistive indexes 0.5. There is a 1.7 x 1.4 cm simple cyst in the right ovary. Follicles are noted. Left ovary measures 5.2 x 4.5 x 3.8 cm. Color-flow is noted. Resistive indexes 0.5. Small follicles are noted. FINDINGS: 1 normal-appearing uterus and endometrial complex. 2. 1.7 x 1.4 cm simple cyst in the right ovary. IMPRESSION: Electronically authenticated by: GUY ARMANDO Date: 2022-08-19 13:32 Normal [facility] Covid-19 PCR (CVDTB)on SARS-CoV-2 (COVID-19) RNA AISHA+probe Ql (Unsp spec) Not detected Normal NOT DETECTED [facility] Comment on above: Result Comment: This test is not yet approved or cleared by the [place] FDA. When there are no FDA-approved or cleared tests available, and other criteria are met, FDA can make tests available under an emergency access mechanism called an Emergency Use Authorization (EUA). The EUA for this test is supported by the Music The[employer]ist of Health and Human Service's (HHS's) declaration that circumstances exist to justify the emergency use of in vitro diagnostics for the detection and/or diagnosis of the virus that causes COVID-19. This EUA will remain in effect (meaning this test can be used) for the duration of the COVID-19 declaration justifying emergency of IVDs, unless it is terminated or revoked by FDA (after which the test may no longer be used). When diagnostic testing is negative, the possibility of a false negative should be considered in the context of a patient's recent exposures and the presence of clinical signs and symptoms consistent with SARS-CoV-2. Performed By: #### D HEA. #### [facility] [address] [place] [address] Dr. Paresh Ewing INFLUENZA A AND B AGon 04-18 [facility] SEE BELOW Normal [facility] Comment on above: Result Comment: Nega tive for Flu A protein angiten. Infection due to Flu A cannot be ruled out. Flu A angiten in the sample may be below the detection limit of the test. Performed By: #### I NFLUAB #### [facility] [address] [place] [address] Dr. Paresh Ewing [facility] SEE BELOW Normal [facility] Comment on above: Result Comment: Nega tive for Flu B protein antigen. Infection due to Flu B cannot be ruled out. Flu B antigen in the sample may be below the detection limit of the test. Performed By: #### I NFLUAB #### [facility] [address] [place] [address] Dr. Paresh Ewing INFLUENZA A AG Negative Normal NEGATIVE SEE COMMENT [facility] Comment on above: Performed By: #### I NFLUAB #### [facility] [address] [place] [address] Dr. Paresh Ewing INFLUENZA B AG Negative Normal NEGATIVE SEE COMMENT [facility] Comment on above: Performed By: #### I NFLUAB #### [facility] [address] [place] [address] Dr. Paresh Ewing STREPT SCREENon 04-18-2022 STREP SCREEN A Positive Abnormal NEGATIVE [facility] Comment on above: Performed By: #### D JAIRO. #### [facility] [address] [place] [address] Dr. Paresh Ewing CBC W MANUAL DIFFon 03-05-20 ATYPICAL LYMPH # Normal [facility] Comment on above: Performed By: #### C ANKUR #### [facility] [address] [place] [address] Dr. Paresh Ewing ATYPICAL LYMPH % Normal [facility] Comment on above: Performed By: #### C BCDESTINY #### [facility] [address] [place] [address] Dr. Paresh Ewing BAND # 0.1 103/ul Normal 0.0-0.3 [facility] Comment on above: Performed By: #### C ANKUR #### [facility] [address] [place] [address] Dr. Paresh Ewing BAND % 1 % Normal 0-5 [facility] Comment on above: Performed By: #### C BCMAN #### [facility] [address] [place] [address] Dr. Paresh Ewing BASOM # 0.00 103/ul Normal 0.00-0.10 [facility] Comment on above: Performed By: #### C BCDESTINY #### [facility] [address] [place] [address] Dr. Paresh Ewing BASOM % 0.0 % Critically low 0.2-2.0 [facility] Comment on above: Performed By: #### C BCDESTINY #### [facility] [address] [place] [address] Dr. Paresh Ewing BLAST # Normal [facility] Comment on above: Performed By: #### C BCDESTINY #### [facility] [address] [place] [address] Dr. Paresh Ewing BLAST % Normal [facility] Comment on above: Performed By: #### C BCDESTINY #### [facility] [address] [place] [address] Dr. Paresh Ewing CORRECTED WBC Normal 4.0-11.0 [facility] Comment on above: Performed By: #### C ANKUR #### [facility] [address] [place] [address] Dr. Paresh Ewing EOS # 0.07 103/ul Normal 0.00-0.70 [facility] Comment on above: Performed By: #### C ANKUR #### [facility] [address] [place] [address] Dr. Paresh Ewing EOS% 1.0 % Normal 0.9-7.0 [facility] Comment on above: Performed By: #### C ANKUR #### [facility] [address] [place] [address] Dr. Paresh Ewing HCT 40.8 % Normal 36.0-48.0 [facility] Comment on above: Performed By: #### C ANKUR #### [facility] [address] [place] [address] Dr. Paresh Ewing HGB 13.9 g/dl Normal 12.0-16.0 [facility] Comment on above: Performed By: #### C BCDESTINY #### [facility] [address] [place] [address] Dr. Paresh Ewing LYMPHM # 0.52 103/ul Critically low 1.20-3.80 [facility] Comment on above: Performed By: #### C BCDESTINY #### [facility] [address] [place] [address] Dr. Paresh Ewing LYMPHM% 7.0 % Critically low 20.5-60.0 [facility] Comment on above: Performed By: #### C ANKUR #### [facility] [address] [place] [address] Dr. Paresh Ewing MCH 30.2 pg Normal 26.7-34.0 [facility] Comment on above: Performed By: #### C ANKUR #### [facility] [address] [place] [address] Dr. Paresh Ewing MCHC 34.1 g/dl Normal 29.9-35.2 [facility] Comment on above: Performed By: #### C ANKUR #### [facility] [address] [place] [address] Dr. Paresh Ewing MCV 88.5 fL Normal 81.0-99.0 [facility] Comment on above: Performed By: #### C ANKUR #### [facility] [address] [place] [address] Dr. Paresh Ewing METAMYELOCYTE # Normal [facility] Comment on above: Performed By: #### Italia PASCUAL #### [facility] [address] [place] [address] Dr. Paresh Ewing METAMYELOCYTE % Normal [facility] Comment on above: Performed By: #### Italia PASCUAL #### [facility] [address] [place] [address] Dr. Paresh Ewing MONOM# 0.59 103/ul Normal 0.30-0.80 [facility] Comment on above: Performed By: #### Italia PASCUAL #### [facility] [address] [place] [address] Dr. Paresh Ewing MONOM% 8.0 % Normal 1.7-12.0 [facility] Comment on above: Performed By: #### C ANKUR #### [facility] [address] [place] [address] Dr. Paresh Ewing MPV 11.5 fL Normal 9.5-13.5 [facility] Comment on above: Performed By: #### C ANKUR #### [facility] [address] [place] [address] Dr. Paresh Ewing MYELOCYTE # Normal [facility] Comment on above: Performed By: #### C ANKUR #### [facility] [address] [place] [address] Dr. Paresh Ewing MYELOCYTE % Normal [facility] Comment on above: Performed By: #### C ANKUR #### [facility] [address] [place] [address] Dr. Paresh Ewing NRBC Normal [facility] Comment on above: Performed By: #### C ANKUR #### [facility] [address] [place] [address] Dr. Paresh wEing PLT 183 103/ul Normal 150-450 [facility] Comment on above: Performed By: #### C ANKUR #### [facility] [address] [place] [address] Dr. Paresh Ewing RBC 4.61 106/ul Normal 4.20-5.40 [facility] Comment on above: Performed By: #### C ANKUR #### [facility] [address] [place] [address] Dr. Paresh Ewing RDW 12.3 % Normal 11.0-15.0 [facility] Comment on above: Performed By: #### C ANKUR #### [facility] [address] [place] [address] Dr. Paresh Ewing SEG # 6.14 103/ul Normal 1.40-6.50 [facility] Comment on above: Performed By: #### C ANKUR #### [facility] [address] [place] [address] Dr. Paresh Ewing SEG % 83.0 % Critically high 43.0-75.0 [facility] Comment on above: Performed By: #### C ANKUR #### [facility] [address] [place] [address] Dr. Paresh Ewing WBC 7.4 103/ul Normal 4.0-11.0 [facility] Comment on above: Performed By: #### C ANKUR #### [facility] [address] [place] [address] Dr. Paresh Ewing CULTURE URINEon 03-05-2022 CULTURE URINE Culture Observations: NO GROWTH. Normal [facility] Comment on above: Performed By: #### C ANKUR #### [facility] [address] [place] [address] Dr. Paresh Ewing Covid-19 PCR (CVDTB)on 02-15 SARS-CoV-2 (COVID-19) RNA AISHA+probe Ql (Unsp spec) Not detected Normal NOT DETECTED [facility] Comment on above: Result Comment: When diagnostic testing is negative, the possibility of a false negative should be considered in the context of a patient's recent exposures and the presence of clinical signs and symptoms consistent with SARS-CoV-2. This test is not yet approved or cleared by the [place] FDA. When there are no FDA-approved or cleared tests available, and other criteria are met, FDA can make tests available under an emergency access mechanism called an Emergency Use Authorization (EUA). The EUA for this test is supported by the Boody of Health and Human Service's declaration that circumstances exist to justify the emergency use of in vitro diagnostics for the detection and/or diagnosis of the virus that causes COVID-19. This EUA will remain in effect for the duration of the COVID-19 declaration justifying emergency of IVDs, unless it is terminated or revoked by the FDA (after which the test may no longer be used). Performed By: #### C VDTB #### [facility] [address] [place] [address] Dr. Paresh Ewing ER URINE PROFILEon Bilirubin Ql (U) Negative Normal NEGATIVE [facility] Comment on above: Performed By: #### C ANKUR #### [facility] [address] [place] [address] Dr. Paresh Ewing Clarity (U) CLEAR Normal CLEAR [facility] Comment on above: Performed By: #### C ANKUR #### [facility] [address] [place] [address] Dr. Paresh Ewing Color (U) LT. YELLOW Normal YELLOW [facility] Comment on above: Performed By: #### C RADHAMAN #### [facility] [address] [place] [address] Dr. Paresh Ewing ERUAHD A micrscopic examination will be performed if indicated. Normal [facility] Comment on above: Performed By: #### C ANKUR #### [facility] [address] [place] [address] Dr. Paresh Ewing Glucose Ql (U) Negative Normal NEGATIVE [facility] Comment on above: Performed By: #### C ANKUR #### [facility] [address] [place] [address] Dr. Paresh Ewing Hemoglobin Ql (U) TRACE-INTACT Abnormal NEGATIVE [facility] Comment on above: Performed By: #### C ANKUR #### [facility] [address] [place] [address] Dr. Paresh Ewing Ketones Ql (U) Negative Normal NEGATIVE [facility] Comment on above: Performed By: #### C ANKUR #### [facility] [address] [place] [address] Dr. Paresh Ewing LEUKOCYTES TRACE Abnormal NEGATIVE [facility] Comment on above: Performed By: #### C ANKUR #### [facility] [address] [place] [address] Dr. Paresh Ewing Nitrite Ql (U) Negative Normal NEGATIVE [facility] Comment on above: Performed By: #### C ANKUR #### [facility] [address] [place] [address] Dr. Paresh Ewing pH (U) 6.0 [pH] Normal 5-9 [facility] Comment on above: Performed By: #### C ANKUR #### [facility] [address] [place] [address] Dr. Paresh Ewing SPEC GRAVITY 1.025 Normal 1.005-<=1.025 [facility] Comment on above: Performed By: #### C ANKUR #### [facility] [address] [place] [address] Dr. Paresh Ewing UA PROTEIN Negative Normal NEGATIVE/ TRACE [facility] Comment on above: Performed By: #### C ANKUR #### [facility] [address] [place] [address] Dr. Paresh Ewing UR MICRO IND INDICATED Normal [facility] Comment on above: Performed By: #### C ANKUR #### [facility] [address] [place] [address] Dr. Paresh Ewing Urobilinogen Qn (U) 0.2 {Myron'U}/dL Normal 0.2 - 1. 0 [facility] Comment on above: Performed By: #### C ANKUR #### [facility] [address] [place] [address] Dr. Paresh Ewing INFLUENZA A AND B AGon 03-05 [facility] SEE BELOW Normal [facility] Comment on above: Result Comment: Nega tive for Flu A protein angiten. Infection due to Flu A cannot be ruled out. Flu A angiten in the sample may be below the detection limit of the test. Performed By: #### I NFLUAB #### [facility] [address] [place] [address] Dr. Paresh Ewing INFLUBNEGH SEE BELOW Normal [facility] Comment on above: Result Comment: Nega tive for Flu B protein antigen. Infection due to Flu B cannot be ruled out. Flu B antigen in the sample may be below the detection limit of the test. Performed By: #### I NFLUAB #### [facility] [address] [place] [address] Dr. Paresh Ewing INFLUENZA A AG Negative Normal NEGATIVE SEE COMMENT [facility] Comment on above: Performed By: #### I NFLUAB #### [facility] [address] [place] [address] Dr. Paresh Ewing INFLUENZA B AG Negative Normal NEGATIVE SEE COMMENT [facility] Comment on above: Performed By: #### I NFLUAB #### [facility] [address] [place] [address] Dr. Paresh Ewing INTERNAL CONTROLS Within Normal Limits Normal Within Normal Limits [facility] Comment on above: Performed By: #### I NFLUAB #### [facility] [address] [place] [address] Dr. Paresh Ewing LIPASEon 03-05-2022 Lipase [Catalytic activity/Vol] 67.0 U/L Critically low 73.0-393.0 [facility] Comment on above: Performed By: #### D JAIRO. #### [facility] [address] [place], [place] [id number] Dr. Paresh Ewing PROF 14(COMP METB)on 022 Albumin [Mass/Vol] 4.0 g/dL Normal 3.4-5.0 [facility] Comment on above: Performed By: #### Dakota GILL. #### [facility] [address] [address] [address] Paresh Ewing Albumin/Globulin [Mass ratio] 1.1 {ratio} Normal [facility] Comment on above: Performed By: #### Dakota GILL. #### [facility] [address] [address] [address] Paresh Ewing ALP [Catalytic activity/Vol] 78 U/L Normal 46-116 [facility] Comment on above: Performed By: #### Dakota GILL. #### [facility] [address] [place] [address] Dr. Paresh Ewing ALT [Catalytic activity/Vol] 31 U/L Normal 14-59 [facility] Comment on above: Performed By: #### Dakota GILL. #### [facility] [address] [address] [address] Paresh Ewing Anion gap [Moles/Vol] 11.6 mmol/L Normal [facility] Comment on above: Performed By: #### Dakota GILL. #### [facility] [address] [address] [address] Paresh Ewing AST [Catalytic activity/Vol] 18 U/L Normal 15-37 [facility] Comment on above: Performed By: #### Dakota GILL. #### [facility] [address] [place] [address] Dr. Paresh Ewing Bilirubin [Mass/Vol] 0.6 mg/dL Normal 0.2-1.0 [facility] Comment on above: Performed By: #### Dakota GILL. #### [facility] [address] [place] [address] Dr. Paresh Ewing Calcium [Mass/Vol] 9.5 mg/dL Normal 8.5-10.1 [facility] Comment on above: Performed By: #### Dakota GILL. #### [facility] [address] [address] [address] Paresh Ewing Chloride [Moles/Vol] 101 mmol/L Normal 98-107 [facility] Comment on above: Performed By: #### Dakota GILL. #### [facility] [address] [address] [address] Paresh Ewing CO2 [Moles/Vol] 29.3 mmol/L Normal 21.0-32.0 [facility] Comment on above: Performed By: #### Dakota GILL. #### [facility] [address] [address] [address] Paresh Ewing Creatinine [Mass/Vol] 0.93 mg/dL Normal 0.55-1.02 [facility] Comment on above: Performed By: #### Dakota GILL. #### [facility] [address] [place] [address] Dr. Paresh Ewing EGFR-AF GIBRALTARIAN >60 Normal >=60 [facility] Comment on above: Performed By: #### Dakota GILL. #### [facility] [address] [address] [address] Paresh Ewing EGFR-NON AF GIBRALTARIAN >60 Normal >=60 [facility] Comment on above: Performed By: #### Dakota GILL. #### [facility] [address] [place] [address] Dr. Paresh Ewing Globulin (S) [Mass/Vol] 3.8 g/dL Normal [facility] Comment on above: Performed By: #### Dakota GILL. #### [facility] [address] [place] [address] Dr. Paresh Ewing Glucose [Mass/Vol] 106 mg/dL Normal 74-106 [facility] Comment on above: Performed By: #### Dakota GILL. #### [facility] [address] [place] [address] Dr. Paresh Ewing Potassium [Moles/Vol] 3.9 mmol/L Normal 3.5-5.1 [facility] Comment on above: Performed By: #### Dakota GILL. #### [facility] [address] [place] [address] Dr. Paresh Ewing Protein [Mass/Vol] 7.8 g/dL Normal 6.4-8.2 [facility] Comment on above: Performed By: #### Dakota GILL. #### [facility] [address] [place] [address] Dr. Paresh Ewing Sodium [Moles/Vol] 138 mmol/L Normal 136-145 [facility] Comment on above: Performed By: #### Dakota GILL. #### [facility] [address] [place] [address] Dr. Paresh Ewing Urea nitrogen [Mass/Vol] 13.0 mg/dL Normal 7.0-18.0 [facility] Comment on above: Performed By: #### Dakota GILL. #### [facility] [address] [place] [address] Dr. Paresh Ewing Urea nitrogen/Creatinine [Mass ratio] 14.0 mg/mg Normal [facility] Comment on above: Performed By: #### Dakota GILL. #### [facility] [address] [place] [address] Dr. Paresh Ewing URINE MICROSCOPIC ONLYon BACTERIA SMALL Abnormal NONE SEEN [facility] Comment on above: Performed By: #### Italia PASCUAL #### [facility] [address] [place] [address] Dr. Paresh Ewing Bacteria identified Cx Nom (U) INDICATED Normal [facility] Comment on above: Performed By: #### Italia PASCUAL #### [facility] [address] [place] [address] Dr. Paresh Ewing CAST NONE SEEN Normal NONE SEEN [facility] Comment on above: Performed By: #### Italia PASCUAL #### [facility] [address] [place] [address] Dr. Paresh Ewing Crystals LM Nom (Urine sed) NONE SEEN Normal NONE SEEN [facility] Comment on above: Performed By: #### Italia PASCUAL #### [facility] [address] [place] [address] Dr. Paresh Ewing Epithelial cells LM Ql (Urine sed) FEW Abnormal NONE SEEN /RARE [facility] Comment on above: Performed By: #### C ANKUR #### [facility] [address] [address] [address] Paresh Ewing MUCOUS NONE SEEN Normal NONE SEEN [facility] Comment on above: Performed By: #### C ANKUR #### [facility] [address] [address] [address] Paresh Ewing RBC 0-2 Normal 0-2 [facility] Comment on above: Performed By: #### C ANKUR #### [facility] [address] [address] [address] Paresh Ewing WBC 2-5 Abnormal NONE SEEN [facility] Comment on above: Performed By: #### C ANKUR #### [facility] [address] [place] [address] Dr. Paresh Ewing Vital Signs Date Time Vital Sign Value Performing Clinician Faci lity 05-01-2024 09:48-0500 Body height 168.91 cm [facility] 05-01-2024 09:48-0500 Body mass index (BMI) [Ratio] 32.4 kg/m2 [facility] 05-01-2024 09:48-0500 Body temperature 97.2 [degF] [facility] 05-01-2024 09:48-0500 Body weight 92.64 kg [facility] 05-01-2024 09:48-0500 Diastolic blood pressure 88 mm[Hg] [facility] 05-01-2024 09:48-0500 Heart rate 97 /min [facility] 05-01-2024 09:48-0500 SaO2% (BldA) [Mass fraction] 99 % [facility] 05-01-2024 09:48-0500 Systolic blood pressure 124 mm[Hg] [facility] Encounters Encounter Date Encounter Type Care Provider Facility Start: 05-01-2024 End: 05-01-2024 ambulatory [facility] Work Phone: Start: 05-01-2024 End: 05-01-2024 Patient encounter procedure [facility] Work Phone: Start: 08-19-2022 End: 08-19-[address] DOCTOR MANE Facility:[facility] Start: 08-19-2022 End: 08-20-[address] SHAYE BERMUDEZ . Facility:[facility] Start: 05-25-[address] SHAYE BERMUDEZ . Facili ty:[facility] Start: 04-18-2022 End: 04-18-[address] MELVIN REDDY . Facility:[facility] Start: 03-05-2022 End: 03-05-2022 ambulatory NONE LISTED REQUEST Facility:[facility] Plan of Treatment Date Care Activity Detail Author US Abdomen limited [facility] US Gallbladder [facility] Pelvis [facility] Payers Date Payer Category Payer Medicaid [id number] 1980 Unknown [id number] [id number] [id number] 1980 Unknown [id number] [id number] [id number] 1980 Unknown [id number] [id number] [id number] 1980 Unknown [id number] [id number] 1980 Unknown [id number] [id number] [id number] 1959 Self-pay 1959 Unknown [id number] Social History Date Type Detail Facility Start: 05-01-2024 Tobacco smoking stat [facility] Current Light tobacco smoker [facility] Start: 05-01-2024 Sex Female (finding) [facility] Start: 1980 Sex Assigned At Female F [facility] Evaluation note Note Date & Type Note Facility Evaluation note Diagnosis Onset Date Resolution Abdominal pain acute May 012024 9:46am Diarrhea acute May 01, 2024 9:46am Nausea and vomiting acute Janua 2024 9:46am [facility] Work Phone: Summary Purpose Family History Relationship Condition Age at Onset Recorded Date/T luis alberto maternal grandmother Diabetes mellitus Unknown brother Bipolar I disorder Unknown father Bipolar I disorder Unknown [facility] Directives Advance Directive Response Recorded Date/ Time Advance Directives No April 30, 2024 9:31am Chief Complaint and Reason for Visit Chief Complaint Admit Date est care, gall bladder concerns May 01, 2024 9:46am Reason for Visit Admit Date Abdominal pain May 01, 2024 9 :46am Diarrhea May 01, 2024 9 :46am Nausea and vomiting May 01, 2024 9 :46am Additional Source Comments INFORMATION SOURCE (unrecogn ized section and content) DATE CREATED AUTHOR 08/26/2022 [facility] Care Teams (unrecognized sec tion and content) Team Status: Active Member Role Status Dates Tova Begum APRN MATERIAL REQUISITIONER-C Primary Care Provider Active Team Status: Inactive Member Role Status Dates Tova Begum APRN MATERIAL REQUISITIONER-C Primary Care Provider, Attending Provider Active Start: May 01, 2024 End: May 01, 2024 Goals (unrecognized section and content) Goals may be documented in a n alternate section FOR RECORDS PERTAINING TO PATIENTS WHO ARE OR HAVE BEEN ENROLLED IN A CHEMICAL DEPENDENCY/SUBSTANCEABUSE PROGRAM, SOME INFORMATION MAY BE OMITTED. This clinical summary was aggregated from multiple sources. Caution should be exercised in using it in the provision of clinical care. This summary normalizes information from multiple sources, and as a consequence, information in this document may materially change the coding, format and clinical context of patient data. In addition, data may be omitted in some cases. CLINICAL DECISIONS SHOULD BE BASED ON THE PRIMARY CLINICAL RECORDS. [employer] provides no warranty or guarantee of the accuracy or completeness of information in this document.
--- NOTE | 2024-06-05 10:15 | US_ITS ---
The [address] [address] Patient Name: THAI CLARK MRN: [id number] date: 1980 Sex: F Assigned Patient Location: US Current Patient Location: US Accession/Order Number: [id number] Exam Date: 06/05/2024 13:21 Report Date: 06/05/2024 13:26 At the request of: LUCIEN FRIEDMAN Procedure: US abdomen complete COMPLETE ABDOMINAL ULTRASOUND CLINICAL DATA: Abdominal pain with nausea and vomiting for the past 2 months. COMPARISON: CT 08/19/2022 The gallbladder is physiologically distended. There are no shadowing gallstones, wall thickening or pericholecystic fluid. The liver shows slight increased echogenicity and mild fatty infiltration is not excluded. There are no intrahepatic masses. The common duct is normal caliber measuring 3 - 4 mm. There is appropriate hepatopedal flow within the main portal vein. No pancreatic abnormalities are visualized. The right kidney measures 10.8 cm and the left 11.6 cm in craniocaudal dimension. There are no shadowing calculi, renal mass lesions or hydronephrosis. The spleen is normal in size and echogenicity. The IVC is patent. No aortic aneurysm is seen. There is no ascites. US/US abdomen complete IMPRESSION: POSSIBLE FATTY LIVER. NO OTHER SIGNIFICANT FINDINGS. Impression dictated by: Shasta Baig M.D.06/05/2024 1:26 PM Dictation Location: [place] [address] Electronically authenticated by: [id number] Y Date: 06/05/2024 13:26
--- NOTE | 2024-06-05 10:15 | US_ITS ---
The [address] [address] Patient Name: THAI CLARK MRN: [id number] date: 1980 Sex: F Assigned Patient Location: US Current Patient Location: US Accession/Order Number: [id number] Exam Date: 06/05/2024 13:12 Report Date: 06/05/2024 13:21 At the request of: LUCIEN FRIEDMAN Procedure: US pelvis w/ transvaginal ULTRASOUND PELVIS WITH TRANSVAGINAL IMAGING COMPARISON: CT and ultrasound 08/19/2022 CLINICAL DATA: Abdominal pain, nausea and vomiting for the past 2 months. Previous left oophorectomy for dermoid tumor. Real-time ultrasound evaluation the pelvis was performed utilizing both a transabdominal and transvaginal approach. TRANSABDOMINAL: Estimated uterine size is approximately 9.7 x 4.3 x 4.0 cm. No focal myometrial abnormalities are identified. The endometrial lining is not well visualized though is estimated at 6 - 7 mm. The right ovary is identified and there is documentation of ovarian blood flow. The left ovary and dermoid seen on the comparison CT are no longer visualized. TRANSVAGINAL: Transvaginal imaging was performed to better evaluate the uterus and adnexa. By this approach, the myometrium is mildly heterogeneous. The endometrial lining is estimated at 5 - 6 mm. There is redemonstration of a nabothian cyst. It measures approximately 15 mm in size. The right ovary measures 2.6 x 3.1 x 3.1 cm. (Volume 13.0 mL) there are ovarian follicles measuring up to 17 mm. There is documentation of ovarian blood flow and a resistive index of 0.49. The left ovary has been surgically removed. There is no free fluid. US/US pelvis w/ transvaginal IMPRESSION: NO DOMINANT ADNEXAL CYSTS OR OTHER ACUTE FINDINGS Impression dictated by: Shasta Baig M.D.06/05/2024 1:21 PM Dictation Location: [place] [address] Electronically authenticated by: [id number] Y Date: 06/05/2024 13:21
== END 2024-06-05 10:10 | disposition home or self-care (01) ==
LOC: US 10:09
PROVIDERS: Visit Provider Nurse Practitioner Family
DX: R19.7 Diarrhea, unspecified (principal); R11.2 Nausea with vomiting, unspecified; R10.9 Unspecified abdominal pain
CPT/HCPCS: 76700; 76830; 76856